=== PATIENT | male | born 1995 | race Caucasian/White ===

== ENCOUNTER 2021-12-19 20:14 | Observation (INO) | payer OTHER ==
[2021-12-19] MEDS ORDERED: Sodium Chloride 0.9% 1000 ML 1,000 ML IV STA (20:29)
[2021-12-19] MEDS ORDERED: HUMULIN R 100 UNIT in Sodium Chloride 0.9% 100 ML IV PRN ×2 (20:39→22:10)
[2021-12-19] MEDS ORDERED: Sodium Chloride 0.9% 1000 ML 1,000 ML ONE (20:51)
[2021-12-19] MEDS ORDERED: HUMULIN R ONE ×2 (20:57→21:06)
[2021-12-19] MEDS ORDERED: Sodium Chloride 0.9% 100 ML ONE (20:58)
[2021-12-19 21:38] LABS: ALBUMIN 4.7 g/dL (3.5-5.0); ALKALINE PHOSPHATASE 189 U/L (38-126); ANION GAP 18.3 MEQ/L (5-15); BLOOD UREA NITROGEN 11 mg/dL (9-20); CHLORIDE 96 mmol/L (98-107); Calcium 9.6 mg/dL (8.4-10.2); Carbon Dioxide 23 mmol/L (22-30); Creatinine 1 0.89 mg/dL (0.66-1.25); EST GLOMERULAR FILTRATION RATE > 60.0 ML/MIN; Potassium 4.3 mmol/L (3.5-5.1); SGOT/AST 223 U/L (17-59); SGPT/ALT 340 U/L (0-50); SODIUM 133 mmol/L (137-145); Total Protein 8.3 g/dL (6.3-8.2)
[2021-12-19 21:51] LABS: Glucose 625 mg/dL (74-106)
[2021-12-19] MEDS: Sodium Chloride 0.9% 1000 ML 1,000 ML IV SCH (21:56)
[2021-12-19 22:33] LABS: INFLUENZA A NEGATIVE (NEGATIVE); INFLUENZA B NEGATIVE (NEGATIVE); RESPIRATORY SYNCTIAL VIRUS NEGATIVE (Negative); SARS-CoV-2 Xpert Express NEGATIVE (NEGATIVE)
[2021-12-20 00:19] LABS: ANION GAP 14.6 MEQ/L (5-15); BLOOD UREA NITROGEN 11 mg/dL (9-20); CHLORIDE 98 mmol/L (98-107); Calcium 8.7 mg/dL (8.4-10.2); Carbon Dioxide 22 mmol/L (22-30); Creatinine 1 0.73 mg/dL (0.66-1.25); EST GLOMERULAR FILTRATION RATE > 60.0 ML/MIN; Glucose 444 mg/dL (74-106); SODIUM 131 mmol/L (137-145)
[2021-12-20] MEDS: Sodium Chloride 0.9% 1000 ML 1,000 ML IV SCH ×3 (00:58→16:30)
[2021-12-20 05:47] LABS: Basophil (Absolute #) 0.08 x10^3/uL (0-0.4); Eosinophil % 3.9 % (0.00-5.0); Eosinophil (Absolute #) 0.29 x10^3/uL (0-0.5); Lymphocyte (Absolute #) 2.46 x10^3/uL (1.0-4.6); Lymphocytes % 33.4 % (24.0-44.0); Mean Cell Volume 83.2 fL (78-100); Mean Corpuscular Hemoglobin 28.4 pg (26-32); Mean Corpuscular Hgb Concent. 34.1 g/dL (32-36); Mean Platelet Volume 11.5 fL (7.5-11.0); Monocyte (Absolute #) 0.61 x10^3/uL (0.0-1.3); Monocytes % 8.3 % (0.0-12.0); Platelet Count 230 x10^3/uL (150-450); Red Blood Count 4.93 x10^6/uL (4.1-5.6); Red Cell Distribution Width 12.6 % (11.5-14.0); White Blood Count 7.4 x10^3/uL (4.0-10.5)
[2021-12-20 06:52] LABS: ALBUMIN 3.9 g/dL (3.5-5.0); ALKALINE PHOSPHATASE 176 U/L (38-126); ANION GAP 11.5 MEQ/L (5-15); BLOOD UREA NITROGEN 11 mg/dL (9-20); CHLORIDE 100 mmol/L (98-107); Calcium 8.5 mg/dL (8.4-10.2); Carbon Dioxide 26 mmol/L (22-30); Creatinine 1 0.65 mg/dL (0.66-1.25); EST GLOMERULAR FILTRATION RATE > 60.0 ML/MIN; Glucose 310 mg/dL (74-106); MAGNESIUM 1.8 mg/dL (1.6-2.3); Potassium 3.5 mmol/L (3.5-5.1); SGOT/AST 155 U/L (17-59); SGPT/ALT 288 U/L (0-50); SODIUM 134 mmol/L (137-145); Total Protein 7.2 g/dL (6.3-8.2)
--- NOTE | 2021-12-20 08:54 | PCM.HP ---
History of Present Illness - Chief Complaint Chief Complaint: dka History of Present Illness: is a 26 year old male with no known medical history, he was found to have elevated LFTs trying to donate plasma so went to see Dr Talley, labs showed a blood sugar over 500 with increased LFTs, new onset diabetes and nonketotic hyperglycemia. started on insulin drip, he does note some polyuria and polydipsia in the last 2 weeks, no abd pain, no nausea/vomiting or abdominal pain. no fever or chills. - Review of Systems Constitutional: No Fever, No Chills Respiratory: No Cough, No Short Of Breath Cardiac: No Chest Pain, No Edema, No Syncope Abdominal/Gastrointestinal: No Abdominal Pain, No Nausea, No Vomiting, No Diarrhea Endocrine: Polyuria, Polydipsia Medications & Allergies Home Medications: Home Medication List No Reportable Medications [No Reported Medications] 12/19/21 [History Confirmed 12/19/21] Allergies/Adverse Reactions: Allergies Allergy/AdvReac Type Severity Reaction Status Date / Time No Known Drug Allergies Allergy Unverified 12/19/21 21:45 - Past Medical History Past Medical History: No - Past Surgical History Past Surgical History: No - Social History Smoking Status: Never smoker Exposure to second hand smoke: No Alcohol: None Drug Use: none - Physical Exam Vital Signs: Vital Signs - 24 hr Temp Pulse Resp BP Pulse Ox 12/20/21 07:14 98 F 78 18 136/95 95 12/20/21 06:31 98.1 F 77 20 143/90 95 12/20/21 05:36 98.1 F 68 20 135/82 97 12/20/21 04:35 74 18 128/63 96 12/20/21 03:48 72 22 113/63 98 12/20/21 03:47 68 12/20/21 02:44 83 16 144/84 94 L 12/20/21 01:37 120 H 24 139/76 98 12/20/21 00:58 78 18 95 12/20/21 00:00 93 H 24 128/76 95 12/19/21 23:40 92 H 12/19/21 22:57 98.6 F 92 H 24 156/82 96 12/19/21 22:00 98.6 F 99 H 16 135/82 99 12/19/21 21:45 98.6 F 104 H 21 129/81 95 12/19/21 21:30 98.6 F 102 H 22 163/96 96 12/19/21 21:17 98.6 F 113 H 21 140/88 96 12/19/21 21:15 98.6 F 112 H 21 154/91 96 12/19/21 21:00 98.6 F 113 H 21 154/91 96 General Appearance: no apparent distress, obese Neurologic Exam: alert, oriented x 3 Respiratory Exam: normal breath sounds, lungs clear, No respiratory distress Cardiovascular Exam: regular rate/rhythm, normal heart sounds, normal peripheral pulses Gastrointestinal/Abdomen Exam: soft, normal bowel sounds, No tenderness, No mass Extremity Exam: normal inspection, normal range of motion, pelvis stable Skin Exam: normal color, warm, dry, No rash Results - Labs Lab/Micro Results: Lab Results-Last 24 Hours 12/19/21 12/19/21 12/19/21 Range/Units 20:30 21:25 21:36 WBC (4.0-10.5) x10^3/uL RBC (4.1-5.6) x10^6/uL Hgb (12.5-18.0) g/dL Hct (42-50) % MCV (78-100) fL MCH (26-32) pg MCHC (32-36) g/dL RDW (11.5-14.0) % Plt Count (150-450) x10^3/uL MPV (7.5-11.0) fL Gran % (36.0-66.0) % Immature Gran % (Auto) (0.00-0.4) % Nucleat RBC Rel Count (0.00-0.1) % Eos # (Auto) (0-0.5) x10^3/uL Immature Gran # (Auto) (0.00-0.03) x10^3u/L Absolute Lymphs (auto) (1.0-4.6) x10^3/uL Absolute Monos (auto) (0.0-1.3) x10^3/uL Absolute Nucleated RBC (0.00-0.01) x10^3u/L Lymphocytes % (24.0-44.0) % Monocytes % (0.0-12.0) % Eosinophils % (0.00-5.0) % Basophils % (0.0-0.4) % Absolute Granulocytes (1.4-6.9) x10^3/uL Basophils # (0-0.4) x10^3/uL Sodium 133 L (137-145) mmol/L Potassium 4.3 (3.5-5.1) mmol/L Chloride 96 L (98-107) mmol/L Carbon Dioxide 23 (22-30) mmol/L Anion Gap 18.3 H (5-15) MEQ/L BUN 11 (9-20) mg/dL Creatinine 0.89 (0.66-1.25) mg/dL Estimated GFR > 60.0 ML/MIN Glucose 625 H* (74-106) mg/dL POC Glucometer 547 H* (50 to 500) mg/dL Calcium 9.6 (8.4-10.2) mg/dL Magnesium (1.6-2.3) mg/dL Total Bilirubin 1.10 (0.2-1.3) mg/dL AST 223 H (17-59) U/L ALT 340 H (0-50) U/L Alkaline Phosphatase 189 H (38-126) U/L Serum Total Protein 8.3 H (6.3-8.2) g/dL Albumin 4.7 (3.5-5.0) g/dL Influenza Type A Ag NEGATIVE (NEGATIVE) Influenza Type B Ag NEGATIVE (NEGATIVE) RSV (PCR) NEGATIVE (Negative) SARS-CoV-2 (PCR) NEGATIVE (NEGATIVE) 12/19/21 12/19/21 12/19/21 Range/Units 22:05 22:54 23:51 WBC (4.0-10.5) x10^3/uL RBC (4.1-5.6) x10^6/uL Hgb (12.5-18.0) g/dL Hct (42-50) % MCV (78-100) fL MCH (26-32) pg MCHC (32-36) g/dL RDW (11.5-14.0) % Plt Count (150-450) x10^3/uL MPV (7.5-11.0) fL Gran % (36.0-66.0) % Immature Gran % (Auto) (0.00-0.4) % Nucleat RBC Rel Count (0.00-0.1) % Eos # (Auto) (0-0.5) x10^3/uL Immature Gran # (Auto) (0.00-0.03) x10^3u/L Absolute Lymphs (auto) (1.0-4.6) x10^3/uL Absolute Monos (auto) (0.0-1.3) x10^3/uL Absolute Nucleated RBC (0.00-0.01) x10^3u/L Lymphocytes % (24.0-44.0) % Monocytes % (0.0-12.0) % Eosinophils % (0.00-5.0) % Basophils % (0.0-0.4) % Absolute Granulocytes (1.4-6.9) x10^3/uL Basophils # (0-0.4) x10^3/uL Sodium (137-145) mmol/L Potassium (3.5-5.1) mmol/L Chloride (98-107) mmol/L Carbon Dioxide (22-30) mmol/L Anion Gap (5-15) MEQ/L BUN (9-20) mg/dL Creatinine (0.66-1.25) mg/dL Estimated GFR ML/MIN Glucose (74-106) mg/dL POC Glucometer 497 H 433 H 417 H (50 to 500) mg/dL Calcium (8.4-10.2) mg/dL Magnesium (1.6-2.3) mg/dL Total Bilirubin (0.2-1.3) mg/dL AST (17-59) U/L ALT (0-50) U/L Alkaline Phosphatase (38-126) U/L Serum Total Protein (6.3-8.2) g/dL Albumin (3.5-5.0) g/dL Influenza Type A Ag (NEGATIVE) Influenza Type B Ag (NEGATIVE) RSV (PCR) (Negative) SARS-CoV-2 (PCR) (NEGATIVE) 12/20/21 12/20/21 12/20/21 Range/Units 00:01 00:47 01:53 WBC (4.0-10.5) x10^3/uL RBC (4.1-5.6) x10^6/uL Hgb (12.5-18.0) g/dL Hct (42-50) % MCV (78-100) fL MCH (26-32) pg MCHC (32-36) g/dL RDW (11.5-14.0) % Plt Count (150-450) x10^3/uL MPV (7.5-11.0) fL Gran % (36.0-66.0) % Immature Gran % (Auto) (0.00-0.4) % Nucleat RBC Rel Count (0.00-0.1) % Eos # (Auto) (0-0.5) x10^3/uL Immature Gran # (Auto) (0.00-0.03) x10^3u/L Absolute Lymphs (auto) (1.0-4.6) x10^3/uL Absolute Monos (auto) (0.0-1.3) x10^3/uL Absolute Nucleated RBC (0.00-0.01) x10^3u/L Lymphocytes % (24.0-44.0) % Monocytes % (0.0-12.0) % Eosinophils % (0.00-5.0) % Basophils % (0.0-0.4) % Absolute Granulocytes (1.4-6.9) x10^3/uL Basophils # (0-0.4) x10^3/uL Sodium 131 L (137-145) mmol/L Potassium 4.0 (3.5-5.1) mmol/L Chloride 98 (98-107) mmol/L Carbon Dioxide 22 (22-30) mmol/L Anion Gap 14.6 (5-15) MEQ/L BUN 11 (9-20) mg/dL Creatinine 0.73 (0.66-1.25) mg/dL Estimated GFR > 60.0 ML/MIN Glucose 444 H (74-106) mg/dL POC Glucometer 360 H 349 H (50 to 500) mg/dL Calcium 8.7 (8.4-10.2) mg/dL Magnesium (1.6-2.3) mg/dL Total Bilirubin (0.2-1.3) mg/dL AST (17-59) U/L ALT (0-50) U/L Alkaline Phosphatase (38-126) U/L Serum Total Protein (6.3-8.2) g/dL Albumin (3.5-5.0) g/dL Influenza Type A Ag (NEGATIVE) Influenza Type B Ag (NEGATIVE) RSV (PCR) (Negative) SARS-CoV-2 (PCR) (NEGATIVE) 12/20/21 12/20/21 12/20/21 Range/Units 02:47 03:52 04:20 WBC 7.4 (4.0-10.5) x10^3/uL RBC 4.93 (4.1-5.6) x10^6/uL Hgb 14.0 (12.5-18.0) g/dL Hct 41.0 L (42-50) % MCV 83.2 (78-100) fL MCH 28.4 (26-32) pg MCHC 34.1 (32-36) g/dL RDW 12.6 (11.5-14.0) % Plt Count 230 (150-450) x10^3/uL MPV 11.5 H (7.5-11.0) fL Gran % 53.0 (36.0-66.0) % Immature Gran % (Auto) 0.3 (0.00-0.4) % Nucleat RBC Rel Count 0.0 (0.00-0.1) % Eos # (Auto) 0.29 (0-0.5) x10^3/uL Immature Gran # (Auto) 0.02 (0.00-0.03) x10^3u/L Absolute Lymphs (auto) 2.46 (1.0-4.6) x10^3/uL Absolute Monos (auto) 0.61 (0.0-1.3) x10^3/uL Absolute Nucleated RBC 0.00 (0.00-0.01) x10^3u/L Lymphocytes % 33.4 (24.0-44.0) % Monocytes % 8.3 (0.0-12.0) % Eosinophils % 3.9 (0.00-5.0) % Basophils % 1.1 (0.0-0.4) % Absolute Granulocytes 3.90 (1.4-6.9) x10^3/uL Basophils # 0.08 (0-0.4) x10^3/uL Sodium (137-145) mmol/L Potassium (3.5-5.1) mmol/L Chloride (98-107) mmol/L Carbon Dioxide (22-30) mmol/L Anion Gap (5-15) MEQ/L BUN (9-20) mg/dL Creatinine (0.66-1.25) mg/dL Estimated GFR ML/MIN Glucose (74-106) mg/dL POC Glucometer 322 H 317 H (50 to 500) mg/dL Calcium (8.4-10.2) mg/dL Magnesium (1.6-2.3) mg/dL Total Bilirubin (0.2-1.3) mg/dL AST (17-59) U/L ALT (0-50) U/L Alkaline Phosphatase (38-126) U/L Serum Total Protein (6.3-8.2) g/dL Albumin (3.5-5.0) g/dL Influenza Type A Ag (NEGATIVE) Influenza Type B Ag (NEGATIVE) RSV (PCR) (Negative) SARS-CoV-2 (PCR) (NEGATIVE) 12/20/21 12/20/21 12/20/21 Range/Units 04:20 04:51 05:48 WBC (4.0-10.5) x10^3/uL RBC (4.1-5.6) x10^6/uL Hgb (12.5-18.0) g/dL Hct (42-50) % MCV (78-100) fL MCH (26-32) pg MCHC (32-36) g/dL RDW (11.5-14.0) % Plt Count (150-450) x10^3/uL MPV (7.5-11.0) fL Gran % (36.0-66.0) % Immature Gran % (Auto) (0.00-0.4) % Nucleat RBC Rel Count (0.00-0.1) % Eos # (Auto) (0-0.5) x10^3/uL Immature Gran # (Auto) (0.00-0.03) x10^3u/L Absolute Lymphs (auto) (1.0-4.6) x10^3/uL Absolute Monos (auto) (0.0-1.3) x10^3/uL Absolute Nucleated RBC (0.00-0.01) x10^3u/L Lymphocytes % (24.0-44.0) % Monocytes % (0.0-12.0) % Eosinophils % (0.00-5.0) % Basophils % (0.0-0.4) % Absolute Granulocytes (1.4-6.9) x10^3/uL Basophils # (0-0.4) x10^3/uL Sodium 134 L (137-145) mmol/L Potassium 3.5 (3.5-5.1) mmol/L Chloride 100 (98-107) mmol/L Carbon Dioxide 26 (22-30) mmol/L Anion Gap 11.5 (5-15) MEQ/L BUN 11 (9-20) mg/dL Creatinine 0.65 L (0.66-1.25) mg/dL Estimated GFR > 60.0 ML/MIN Glucose 310 H (74-106) mg/dL POC Glucometer 308 H 281 H (50 to 500) mg/dL Calcium 8.5 (8.4-10.2) mg/dL Magnesium 1.8 (1.6-2.3) mg/dL Total Bilirubin 0.50 (0.2-1.3) mg/dL AST 155 H (17-59) U/L ALT 288 H (0-50) U/L Alkaline Phosphatase 176 H (38-126) U/L Serum Total Protein 7.2 (6.3-8.2) g/dL Albumin 3.9 (3.5-5.0) g/dL Influenza Type A Ag (NEGATIVE) Influenza Type B Ag (NEGATIVE) RSV (PCR) (Negative) SARS-CoV-2 (PCR) (NEGATIVE) 12/20/21 12/20/21 Range/Units 06:37 07:48 WBC (4.0-10.5) x10^3/uL RBC (4.1-5.6) x10^6/uL Hgb (12.5-18.0) g/dL Hct (42-50) % MCV (78-100) fL MCH (26-32) pg MCHC (32-36) g/dL RDW (11.5-14.0) % Plt Count (150-450) x10^3/uL MPV (7.5-11.0) fL Gran % (36.0-66.0) % Immature Gran % (Auto) (0.00-0.4) % Nucleat RBC Rel Count (0.00-0.1) % Eos # (Auto) (0-0.5) x10^3/uL Immature Gran # (Auto) (0.00-0.03) x10^3u/L Absolute Lymphs (auto) (1.0-4.6) x10^3/uL Absolute Monos (auto) (0.0-1.3) x10^3/uL Absolute Nucleated RBC (0.00-0.01) x10^3u/L Lymphocytes % (24.0-44.0) % Monocytes % (0.0-12.0) % Eosinophils % (0.00-5.0) % Basophils % (0.0-0.4) % Absolute Granulocytes (1.4-6.9) x10^3/uL Basophils # (0-0.4) x10^3/uL Sodium (137-145) mmol/L Potassium (3.5-5.1) mmol/L Chloride (98-107) mmol/L Carbon Dioxide (22-30) mmol/L Anion Gap (5-15) MEQ/L BUN (9-20) mg/dL Creatinine (0.66-1.25) mg/dL Estimated GFR ML/MIN Glucose (74-106) mg/dL POC Glucometer 267 H 284 H (50 to 500) mg/dL Calcium (8.4-10.2) mg/dL Magnesium (1.6-2.3) mg/dL Total Bilirubin (0.2-1.3) mg/dL AST (17-59) U/L ALT (0-50) U/L Alkaline Phosphatase (38-126) U/L Serum Total Protein (6.3-8.2) g/dL Albumin (3.5-5.0) g/dL Influenza Type A Ag (NEGATIVE) Influenza Type B Ag (NEGATIVE) RSV (PCR) (Negative) SARS-CoV-2 (PCR) (NEGATIVE) Accuchecks Date 12/20/21 Date 12/20/21 Date 12/20/21 Date 12/20/21 Date 12/20/21 Date 12/20/21 Date 12/20/21 Date 12/20/21 Date 12/19/21 Time 06:41 Time 05:53 Time 04:54 Time 04:00 Time 02:53 Time 01:56 Time 00:49 Time 00:05 Time 23:00 - Radiology Impressions Radiology Exams & Impressions: Radiology Procedures Category Date Time Status GALLBLADDER [US] Routine Exams 12/20/21 06:00 Ordered Assessment/Plan (1) Nonketotic hyperglycinemia, type II Current Visit: Yes Status: Acute Assessment & Plan: improved with insulin drip. will change to sub-q insulin and start on po metformin at this time. discussed lifestyle changes Code(s): E72.9 - DISORDER OF AMINO-ACID METABOLISM, UNSPECIFIED (2) Diabetes mellitus, new onset Current Visit: No Status: Acute Code(s): E11.9 - TYPE 2 DIABETES MELLITUS WITHOUT COMPLICATIONS (3) Elevated liver enzymes Current Visit: No Status: Acute Assessment & Plan: suspect fatty liver disease, awaiting gb ultrasound Code(s): R74.8 - ABNORMAL LEVELS OF OTHER SERUM ENZYMES
[2021-12-20] MEDS: Lantus Insulin SQ SCH (09:10)
--- NOTE | 2021-12-20 09:57 | XRAY ---
Indication: Elevated liver enzymes. Diabetes. Two-dimensional gallbladder sonogram performed. Comparison: None Pancreas not well seen. Gallbladder normally distended without gallstones, wall thickening, or pericholecystic fluid or common bile duct measures 7.4 mm. No intrahepatic biliary distention. Diffuse fatty hepatomegaly measuring 24.1 cm. No ascites. Right kidney measures 14.4 cm in length and sonographically unremarkable. Impression: Nonvisualization pancreas. Fatty hepatomegaly. Remaining gallbladder sonogram is negative.
[2021-12-20] MEDS: HUMALOG SQ PRN ×3 (11:56→21:00)
[2021-12-20] MEDS: Glucophage 500 MG PO SCH (16:24)
[2021-12-20] MEDS ORDERED: TYLENOL 325 MG PO PRN (22:14)
[2021-12-21] MEDS: HUMALOG SQ PRN ×3 (00:04→08:33)
[2021-12-21] MEDS: Sodium Chloride 0.9% 1000 ML 1,000 ML IV SCH ×2 (02:49→07:28)
[2021-12-21 04:25] VITALS: O2SAT 96
[2021-12-21 05:23] LABS: Absolute Neutrophil Ct (ANC) 3.46 x10^3/uL (1.4-6.9); Basophil (Absolute #) 0.06 x10^3/uL (0-0.4); Eosinophil % 4.6 % (0.00-5.0); Eosinophil (Absolute #) 0.29 x10^3/uL (0-0.5); Hematocrit 43.6 % (42-50); Hemoglobin 14.6 g/dL (12.5-18.0); Lymphocyte (Absolute #) 2.01 x10^3/uL (1.0-4.6); Lymphocytes % 31.9 % (24.0-44.0); Mean Corpuscular Hemoglobin 27.4 pg (26-32); Mean Corpuscular Hgb Concent. 33.5 g/dL (32-36); Mean Platelet Volume 10.7 fL (7.5-11.0); Monocyte (Absolute #) 0.45 x10^3/uL (0.0-1.3); Monocytes % 7.1 % (0.0-12.0); Neutrophil % 54.9 % (36.0-66.0); Platelet Count 227 x10^3/uL (150-450); Red Blood Count 5.32 x10^6/uL (4.1-5.6); Red Cell Distribution Width 12.5 % (11.5-14.0); White Blood Count 6.3 x10^3/uL (4.0-10.5)
[2021-12-21 05:48] LABS: ALBUMIN 4.1 g/dL (3.5-5.0); ALKALINE PHOSPHATASE 139 U/L (38-126); ANION GAP 10.8 MEQ/L (5-15); BLOOD UREA NITROGEN 8 mg/dL (9-20); CHLORIDE 98 mmol/L (98-107); Calcium 8.9 mg/dL (8.4-10.2); Carbon Dioxide 28 mmol/L (22-30); EST GLOMERULAR FILTRATION RATE > 60.0 ML/MIN; Glucose 290 mg/dL (74-106); Potassium 4.1 mmol/L (3.5-5.1); SGOT/AST 266 U/L (17-59); SGPT/ALT 383 U/L (0-50); SODIUM 133 mmol/L (137-145); Total Protein 7.5 g/dL (6.3-8.2)
[2021-12-21] MEDS: Lantus Insulin SQ SCH (08:26)
[2021-12-21] MEDS: Glucophage 500 MG PO SCH (08:26)
--- NOTE | 2021-12-21 08:53 | PCM.NOTE ---
Date and Time: 12/21/21 0851 Subjective Assessment: doing ok - Review of Systems Constitutional: No Fever, No Chills Eyes: No Symptoms Ears, Nose, & Throat: No Symptoms Respiratory: No Cough, No Short Of Breath Cardiac: No Chest Pain, No Edema, No Syncope Abdominal/Gastrointestinal: No Abdominal Pain, No Nausea, No Vomiting, No Diarrhea Genitourinary Symptoms: No Dysuria Musculoskeletal: No Back Pain, No Neck Pain Skin: No Rash Neurological: No Dizziness, No Focal Weakness, No Sensory Changes Psychological: No Symptoms Endocrine: No Symptoms Hematologic/Lymphatic: No Symptoms Immunological/Allergic: No Symptoms Objective Exam General Appearance: no apparent distress, alert Neurologic Exam: alert, oriented x 3, cooperative, normal mood/affect, nml cerebellar function, sensation nml, No motor deficits Skin Exam: normal color, warm, dry Eye Exam: PERRL, EOMI, eyes nml inspection Ears, Nose, Throat Exam: normal ENT inspection, pharynx normal, moist mucous membranes Neck Exam: normal inspection, non-tender, supple, full range of motion Respiratory Exam: normal breath sounds, lungs clear, No respiratory distress Cardiovascular Exam: regular rate/rhythm, normal heart sounds Gastrointestinal/Abdomen Exam: soft, No tenderness, No mass Extremity Exam: normal inspection, normal range of motion Back Exam: normal inspection, normal range of motion, No CVA tenderness, No vertebral tenderness Male Genitalia Exam: deferred Rectal Exam: deferred OBJECTIVE DATA Vital Signs: Vital Signs - 24 hr Temp Pulse Resp BP Pulse Ox 12/21/21 08:00 97.9 F 90 18 165/93 96 12/21/21 04:00 97.7 F 78 18 133/72 96 12/21/21 00:00 97.1 F 74 20 142/85 98 12/20/21 20:19 97.7 F 77 18 146/92 98 12/20/21 16:00 97.7 F 60 18 151/86 97 12/20/21 12:00 97.8 F 74 22 142/77 97 Pain Assessment - Last Documented Pain Intensity 4 Pain Scale Used [facility] Intake and Output: Intake & Output 12/18/21 12/19/21 12/20/21 12/21/21 11:59 11:59 11:59 11:59 Intake Total 0709 5587 Output Total 1600 Balance 0021 9 Weight 163.6 kg Lab Results: Lab Results-Last 24 Hours 12/20/21 12/20/21 12/21/21 Range/Units 04:20 23:59 04:19 WBC (4.0-10.5) x10^3/uL RBC (4.1-5.6) x10^6/uL Hgb (12.5-18.0) g/dL Hct (42-50) % MCV (78-100) fL MCH (26-32) pg MCHC (32-36) g/dL RDW (11.5-14.0) % Plt Count (150-450) x10^3/uL MPV (7.5-11.0) fL Gran % (36.0-66.0) % Immature Gran % (Auto) (0.00-0.4) % Nucleat RBC Rel Count (0.00-0.1) % Eos # (Auto) (0-0.5) x10^3/uL Immature Gran # (Auto) (0.00-0.03) x10^3u/L Absolute Lymphs (auto) (1.0-4.6) x10^3/uL Absolute Monos (auto) (0.0-1.3) x10^3/uL Absolute Nucleated RBC (0.00-0.01) x10^3u/L Lymphocytes % (24.0-44.0) % Monocytes % (0.0-12.0) % Eosinophils % (0.00-5.0) % Basophils % (0.0-0.4) % Absolute Granulocytes (1.4-6.9) x10^3/uL Basophils # (0-0.4) x10^3/uL Sodium (137-145) mmol/L Potassium (3.5-5.1) mmol/L Chloride (98-107) mmol/L Carbon Dioxide (22-30) mmol/L Anion Gap (5-15) MEQ/L BUN (9-20) mg/dL Creatinine (0.66-1.25) mg/dL Estimated GFR ML/MIN Glucose (74-106) mg/dL POC Glucometer 293 H 262 H (74 to 106) mg/dL Hemoglobin A1c 9.84 H (4.5-6.0) % Calcium (8.4-10.2) mg/dL Total Bilirubin (0.2-1.3) mg/dL AST (17-59) U/L ALT (0-50) U/L Alkaline Phosphatase (38-126) U/L Serum Total Protein (6.3-8.2) g/dL Albumin (3.5-5.0) g/dL 12/21/21 12/21/21 12/21/21 Range/Units 05:19 05:19 08:29 WBC 6.3 (4.0-10.5) x10^3/uL RBC 5.32 (4.1-5.6) x10^6/uL Hgb 14.6 (12.5-18.0) g/dL Hct 43.6 (42-50) % MCV 82.0 (78-100) fL MCH 27.4 (26-32) pg MCHC 33.5 (32-36) g/dL RDW 12.5 (11.5-14.0) % Plt Count 227 (150-450) x10^3/uL MPV 10.7 (7.5-11.0) fL Gran % 54.9 (36.0-66.0) % Immature Gran % (Auto) 0.5 H (0.00-0.4) % Nucleat RBC Rel Count 0.0 (0.00-0.1) % Eos # (Auto) 0.29 (0-0.5) x10^3/uL Immature Gran # (Auto) 0.03 (0.00-0.03) x10^3u/L Absolute Lymphs (auto) 2.01 (1.0-4.6) x10^3/uL Absolute Monos (auto) 0.45 (0.0-1.3) x10^3/uL Absolute Nucleated RBC 0.00 (0.00-0.01) x10^3u/L Lymphocytes % 31.9 (24.0-44.0) % Monocytes % 7.1 (0.0-12.0) % Eosinophils % 4.6 (0.00-5.0) % Basophils % 1.0 (0.0-0.4) % Absolute Granulocytes 3.46 (1.4-6.9) x10^3/uL Basophils # 0.06 (0-0.4) x10^3/uL Sodium 133 L (137-145) mmol/L Potassium 4.1 (3.5-5.1) mmol/L Chloride 98 (98-107) mmol/L Carbon Dioxide 28 (22-30) mmol/L Anion Gap 10.8 (5-15) MEQ/L BUN 8 L (9-20) mg/dL Creatinine 0.60 L (0.66-1.25) mg/dL Estimated GFR > 60.0 ML/MIN Glucose 290 H (74-106) mg/dL POC Glucometer 303 H (74 to 106) mg/dL Hemoglobin A1c (4.5-6.0) % Calcium 8.9 (8.4-10.2) mg/dL Total Bilirubin 0.90 (0.2-1.3) mg/dL AST 266 H (17-59) U/L ALT 383 H (0-50) U/L Alkaline Phosphatase 139 H (38-126) U/L Serum Total Protein 7.5 (6.3-8.2) g/dL Albumin 4.1 (3.5-5.0) g/dL Radiology Exams: Radiology Procedures Category Date Time Status GALLBLADDER [US] Routine Exams 12/20/21 06:00 Completed US/GALLBLADDER Indication: Elevated liver enzymes. Diabetes. Two-dimensional gallbladder sonogram performed. Comparison: None Pancreas not well seen. Gallbladder normally distended without gallstones, wall thickening, or pericholecystic fluid or common bile duct measures 7.4 mm. No intrahepatic biliary distention. Diffuse fatty hepatomegaly measuring 24.1 cm. No ascites. Right kidney measures 14.4 cm in length and sonographically unremarkable. Impression: Nonvisualization pancreas. Fatty hepatomegaly. Remaining gallbladder sonogram is negative. Multi-Disciplinary Progress Notes: Multi-Disciplinary Progress Notes 12/20/21 14:10 Nutrition Note by Delmi Freeman Educated pt on 2000CC diet. Pt very interested, asked several questions. Gave pt written materials for reinforcement. ABBEY Bettencourt Initialized on 12/20/21 14:10 - END OF NOTE 12/20/21 09:00 (created 12/20/21 11:50) Case Management Note by Lea Govea GLUCOMETER ORDER CALLED INTO [facility]- NURSE TO INSTRUCT PATIENT TO HAVE FAMILY PICK IT UP AND BRING IT IN SO THEY CAN EDUCATE PATIENT ON ITS USE WHILE HE IS HERE. Initialized on 12/20/21 11:50 - END OF NOTE Assessment/Plan (1) Diabetes mellitus, new onset Current Visit: Yes Status: Acute Assessment & Plan: Chief Complaint Diagnosis DKA Allergies Allergy/AdvReac Type Severity Reaction Status Date / Time No Known Drug Allergies Allergy Unverified 12/19/21 21:45 Vital Signs (Last 24 hours) Temp Pulse Resp BP Pulse Ox 12/21/21 08:00 97.9 F 90 18 165/93 96 12/21/21 04:00 97.7 F 78 18 133/72 96 12/21/21 00:00 97.1 F 74 20 142/85 98 12/20/21 20:19 97.7 F 77 18 146/92 98 12/20/21 16:00 97.7 F 60 18 151/86 97 12/20/21 12:00 97.8 F 74 22 142/77 97 Home Medications Medication Instructions Recorded Confirmed Last Taken Type No Reportable Medications [No 12/19/21 12/19/21 Unknown History Reported Medications] Current Medications Generic Name Dose Route Start Last Admin Trade Name Freq PRN Reason Stop Dose Admin Acetaminophen 650 mg 12/20/21 22:14 12/20/21 22:17 Acetaminophen 325 Mg Tablet PO 01/19/22 22:13 650 mg Q4H PRN PRN Administration PAIN AND/OR FEVER Sodium Chloride 1,000 mls @ 100 mls/hr 12/19/21 22:00 12/21/21 07:28 Sodium Chloride 0.9% 1000 Ml IV 01/18/22 21:59 Not Given .Q10H FRANKLYN Insulin Glargine 30 unit 12/20/21 10:00 12/21/21 08:26 Insulin Glargine 1 Unit SQ 01/19/22 09:59 30 unit QAM FRANKLYN Administration Insulin Human Lispro 0 unit 12/20/21 08:55 12/21/21 08:33 Insulin Lispro 1 Unit SQ 01/19/22 08:54 9 unit UD PRN Administration HYPERGLYCEMIA Metformin HCl 500 mg 12/20/21 17:00 12/21/21 08:26 Metformin Hcl 500 Mg Tablet PO 01/19/22 16:59 500 mg BIDWM FRANKLYN Administration Discontinued Medications Generic Name Dose Route Start Last Admin Trade Name Freq PRN Reason Stop Dose Admin Sodium Chloride 1,000 mls @ 999 mls/hr 12/19/21 20:29 12/19/21 21:56 Sodium Chloride 0.9% 1000 Ml IV 12/19/21 21:29 Infused .Q1H1M STA Infusion Insulin Human Regular 100 unit 100 mls @ 0 mls/hr 12/19/21 20:39 / Sodium Chloride IV 01/18/22 20:38 .Q0M PRN DKA/HYPERGLYCEMIA Protocol 0.1 UNIT/KG/HR Sodium Chloride Confirm 12/19/21 20:58 Sodium Chloride 0.9% Administered 12/19/21 20:59 Dose 100 mls @ ud .ROUTE .STK-MED ONE Insulin Human Regular 100 unit 100 mls @ 16.36 mls/hr 12/19/21 22:10 12/20/21 07:51 / Sodium Chloride IV 01/18/22 22:09 0.05 unit/kg/hr .Q6H7M PRN 8 mls/hr DKA/HYPERGLYCEMIA Titration Protocol 0.1 UNIT/KG/HR Sodium Chloride Confirm 12/19/21 20:51 Sodium Chloride 0.9% 1000 Ml Administered 12/19/21 20:52 Dose 1,000 mls @ ud .ROUTE .STK-MED ONE Insulin Human Regular Confirm 12/19/21 20:57 Insulin Regular, Human 1 Unit Administered 12/19/21 20:58 Dose 1 unit .ROUTE .STK-MED ONE Insulin Human Regular Confirm 12/19/21 21:06 Insulin Regular, Human 1 Unit Administered 12/19/21 21:07 Dose 1 unit .ROUTE .STK-MED ONE Intake & Output (Last 24 hours) 12/18/21 12/19/21 12/20/21 12/21/21 11:59 11:59 11:59 11:59 Intake Total 6175 2068 Output Total 1600 Balance 4575 2068 Weight 163.6 kg Laboratory Results (Last 24 hours) 12/21/21 12/21/21 12/21/21 08:29 05:19 05:19 WBC 6.3 RBC 5.32 Hgb 14.6 Hct 43.6 MCV 82.0 MCH 27.4 MCHC 33.5 RDW 12.5 Plt Count 227 MPV 10.7 Gran % 54.9 Immature Gran % (Auto) 0.5 H Nucleat RBC Rel Count 0.0 Eos # (Auto) 0.29 Immature Gran # (Auto) 0.03 Absolute Lymphs (auto) 2.01 Absolute Monos (auto) 0.45 Absolute Nucleated RBC 0.00 Lymphocytes % 31.9 Monocytes % 7.1 Eosinophils % 4.6 Basophils % 1.0 Absolute Granulocytes 3.46 Basophils # 0.06 Sodium 133 L Potassium 4.1 Chloride 98 Carbon Dioxide 28 Anion Gap 10.8 BUN 8 L Creatinine 0.60 L Estimated GFR > 60.0 Glucose 290 H POC Glucometer 303 H Hemoglobin A1c Calcium 8.9 Total Bilirubin 0.90 AST 266 H ALT 383 H Alkaline Phosphatase 139 H Serum Total Protein 7.5 Albumin 4.1 12/21/21 12/20/21 12/20/21 04:19 23:59 04:20 WBC RBC Hgb Hct MCV MCH MCHC RDW Plt Count MPV Gran % Immature Gran % (Auto) Nucleat RBC Rel Count Eos # (Auto) Immature Gran # (Auto) Absolute Lymphs (auto) Absolute Monos (auto) Absolute Nucleated RBC Lymphocytes % Monocytes % Eosinophils % Basophils % Absolute Granulocytes Basophils # Sodium Potassium Chloride Carbon Dioxide Anion Gap BUN Creatinine Estimated GFR Glucose POC Glucometer 262 H 293 H Hemoglobin A1c 9.84 H Calcium Total Bilirubin AST ALT Alkaline Phosphatase Serum Total Protein Albumin Orders (Last 24 hours) Category Date Time Status Diabetic Teaching ROUTINE Care 12/20/21 08:55 Active Nursing [Miscellaneous Nursing Order] ROUTINE Care 12/20/21 08:57 Active Nursing [Miscellaneous Nursing Order] ROUTINE Care 12/20/21 09:00 Active POCT Glucose Check Q4H Care 12/20/21 08:56 Active Consistent Carbohydrate Diet 2000 Calorie Diet 12/20/21 Lunch Active Nutritional Consult ROUTINE Diet 12/20/21 09:18 Active CBC W DIFF AM.LAB Lab 12/21/21 05:19 Completed CBC W DIFF AM.LAB Lab 12/22/21 04:00 Ordered CMP AM.LAB Lab 12/21/21 05:19 Completed CMP AM.LAB Lab 12/22/21 04:00 Ordered Hepatitis Profile [Acute Hepatitis Profile] Routine Lab 12/20/21 09:25 Received POCT GLUCOSE Stat Lab 12/20/21 23:59 Completed POCT GLUCOSE Stat Lab 12/21/21 04:19 Completed POCT GLUCOSE Stat Lab 12/21/21 08:29 Completed Acetaminophen 325 mg [Tylenol 325 mg] Med 12/20/21 22:14 Active 650 mg PO Q4H PRN PRN Insulin Glargine [Lantus Insulin] Med 12/20/21 10:00 Active 30 unit SQ QAM Insulin Lispro [Humalog] Med 12/20/21 08:55 Active See Dose Instructions SQ UD PRN Metformin HCl 500 mg [Glucophage 500 MG] Med 12/20/21 17:00 Active 500 mg PO BIDWM Patient Care Notes (Last 24 hours) 12/20/21 21:42 Nursing Note by Galina Cortes Patient reported 1 small episode of vomiting. Initialized on 12/20/21 21:42 - END OF NOTE 12/20/21 14:10 Nutrition Note by Delmi Freeman Educated pt on 2000CC diet. Pt very interested, asked several questions. Gave pt written materials for reinforcement. Sg MSRDCD Initialized on 12/20/21 14:10 - END OF NOTE 12/20/21 11:53 Nursing Note by eBlén Freedman pt used his own meter to check his blood sugar. Initialized on 12/20/21 11:53 - END OF NOTE 12/20/21 09:21 Nursing Note by Belén Freedman pt instructed on how to give insulin shots and performed his own lantus injecti on to RUQ. insulin drip off. Initialized on 12/20/21 09:21 - END OF NOTE 12/20/21 09:00 (created 12/20/21 11:50) Case Management Note by Lea Govea GLUCOMETER ORDER CALLED INTO [facility]- NURSE TO INSTRUCT PATIENT TO HAVE FAMILY PICK IT UP AND BRING IT IN SO THEY CAN EDUCATE PATIENT ON ITS USE WHILE HE IS HERE. Initialized on 12/20/21 11:50 - END OF NOTE Code(s): E11.9 - TYPE 2 DIABETES MELLITUS WITHOUT COMPLICATIONS (2) Elevated liver enzymes Current Visit: Yes Status: Acute Code(s): R74.8 - ABNORMAL LEVELS OF OTHER SERUM ENZYMES
[2021-12-21 09:11] LABS: HBsAg Screen Negative (Negative); HCV Ab 0.3 s/co ratio (0.0-0.9); Hep A Ab, IgM Negative (Negative); Hep B Core Ab, IgM Negative (Negative)
[2021-12-21 11:27] VITALS: BP 167/88; PULSE 95
--- NOTE | 2021-12-21 17:20 | PCM.DS ---
Discharge Summary Date of Admission: 12/19/21 20:14 Admitting Physician: TEREZA SHELTON Consults: Consults on Case 12/20/21 09:18 Nutritional Consult ROUTINE Primary Care Provider: TEREZA SHELTON Allergies Allergies No Known Drug Allergies Allergy (Unverified 12/19/21 21:45) Hospital Summary - Hospital Course Hospital Course: Chief Complaint Diagnosis DKA Allergies Allergy/AdvReac Type Severity Reaction Status Date / Time No Known Drug Allergies Allergy Unverified 12/19/21 21:45 Vital Signs (Last 24 hours) Temp Pulse Resp BP Pulse Ox 12/21/21 11:26 98.0 F 95 H 16 167/88 96 12/21/21 08:00 97.9 F 90 18 165/93 96 12/21/21 04:00 97.7 F 78 18 133/72 96 12/21/21 00:00 97.1 F 74 20 142/85 98 12/20/21 20:19 97.7 F 77 18 146/92 98 Home Medications Medication Instructions Recorded Confirmed Last Taken Type Insulin Glargine-Yfgn 50 unit SQ DAILY 30 Days #1 12/21/21 Unknown Rx Metformin HCl 500 mg 500 mg PO BIDWM 30 Days #60 tablet 12/21/21 Unknown Rx [Glucophage 500 MG] Current Medications Discontinued Medications Generic Name Dose Route Start Last Admin Trade Name Freq PRN Reason Stop Dose Admin Acetaminophen 650 mg 12/20/21 22:14 12/20/21 22:17 Acetaminophen 325 Mg Tablet PO 01/19/22 22:13 650 mg Q4H PRN PRN Administration PAIN AND/OR FEVER Sodium Chloride 1,000 mls @ 999 mls/hr 12/19/21 20:29 12/19/21 21:56 Sodium Chloride 0.9% 1000 Ml IV 12/19/21 21:29 Infused .Q1H1M STA Infusion Sodium Chloride 1,000 mls @ 100 mls/hr 12/19/21 22:00 12/21/21 07:28 Sodium Chloride 0.9% 1000 Ml IV 01/18/22 21:59 Not Given .Q10H FRANK[place] Insulin Human Regular 100 unit 100 mls @ 0 mls/hr 12/19/21 20:39 / Sodium Chloride IV 01/18/22 20:38 .Q0M PRN DKA/HYPERGLYCEMIA Protocol 0.1 UNIT/KG/HR Sodium Chloride Confirm 12/19/21 20:58 Sodium Chloride 0.9% Administered 12/19/21 20:59 Dose 100 mls @ ud .ROUTE .STK-MED ONE Insulin Human Regular 100 unit 100 mls @ 16.36 mls/hr 12/19/21 22:10 12/20/21 07:51 / Sodium Chloride IV 01/18/22 22:09 0.05 unit/kg/hr .Q6H7M PRN 8 mls/hr DKA/HYPERGLYCEMIA Titration Protocol 0.1 UNIT/KG/HR Sodium Chloride Confirm 12/19/21 20:51 Sodium Chloride 0.9% 1000 Ml Administered 12/19/21 20:52 Dose 1,000 mls @ ud .ROUTE .STK-MED ONE Insulin Glargine 30 unit 12/20/21 10:00 12/21/21 08:26 Insulin Glargine 1 Unit SQ 01/19/22 09:59 30 unit QAM FR[place] Administration Insulin Human Lispro 0 unit 12/20/21 08:55 12/21/21 08:33 Insulin Lispro 1 Unit SQ 01/19/22 08:54 9 unit UD PRN Administration HYPERGLYCEMIA Insulin Human Regular Confirm 12/19/21 20:57 Insulin Regular, Human 1 Unit Administered 12/19/21 20:58 Dose 1 unit .ROUTE .STK-MED ONE Insulin Human Regular Confirm 12/19/21 21:06 Insulin Regular, Human 1 Unit Administered 12/19/21 21:07 Dose 1 unit .ROUTE .STK-MED ONE Metformin HCl 500 mg 12/20/21 17:00 12/21/21 08:26 Metformin Hcl 500 Mg Tablet PO 01/19/22 16:59 500 mg BIDWM FR[place] Administration Intake & Output (Last 24 hours) 12/19/21 12/20/21 12/21/21 12/22/21 11:59 11:59 11:59 11:59 Intake Total 6176 2068 Output Total 1600 Balance 4572 2068 Weight 163.6 kg Laboratory Results (Last 24 hours) 12/21/21 12/21/21 12/21/21 11:16 08:29 05:19 WBC RBC Hgb Hct MCV MCH MCHC RDW Plt Count MPV Gran % Immature Gran % (Auto) Nucleat RBC Rel Count Eos # (Auto) Immature Gran # (Auto) Absolute Lymphs (auto) Absolute Monos (auto) Absolute Nucleated RBC Lymphocytes % Monocytes % Eosinophils % Basophils % Absolute Granulocytes Basophils # Sodium 133 L Potassium 4.1 Chloride 98 Carbon Dioxide 28 Anion Gap 10.8 BUN 8 L Creatinine 0.60 L Estimated GFR > 60.0 Glucose 290 H POC Glucometer 138 H 303 H Calcium 8.9 Total Bilirubin 0.90 AST 266 H ALT 383 H Alkaline Phosphatase 139 H Serum Total Protein 7.5 Albumin 4.1 Hepatitis A IgM Ab Hep Bs Antigen Hep B Core IgM Ab Hep C Ab Signal/Cutoff Hepatitis C Interp 12/21/21 12/21/21 12/20/21 05:19 04:19 23:59 WBC 6.3 RBC 5.32 Hgb 14.6 Hct 43.6 MCV 82.0 MCH 27.4 MCHC 33.5 RDW 12.5 Plt Count 227 MPV 10.7 Gran % 54.9 Immature Gran % (Auto) 0.5 H Nucleat RBC Rel Count 0.0 Eos # (Auto) 0.29 Immature Gran # (Auto) 0.03 Absolute Lymphs (auto) 2.01 Absolute Monos (auto) 0.45 Absolute Nucleated RBC 0.00 Lymphocytes % 31.9 Monocytes % 7.1 Eosinophils % 4.6 Basophils % 1.0 Absolute Granulocytes 3.46 Basophils # 0.06 Sodium Potassium Chloride Carbon Dioxide Anion Gap BUN Creatinine Estimated GFR Glucose POC Glucometer 262 H 293 H Calcium Total Bilirubin AST ALT Alkaline Phosphatase Serum Total Protein Albumin Hepatitis A IgM Ab Hep Bs Antigen Hep B Core IgM Ab Hep C Ab Signal/Cutoff Hepatitis C Interp 12/20/21 09:25 WBC RBC Hgb Hct MCV MCH MCHC RDW Plt Count MPV Gran % Immature Gran % (Auto) Nucleat RBC Rel Count Eos # (Auto) Immature Gran # (Auto) Absolute Lymphs (auto) Absolute Monos (auto) Absolute Nucleated RBC Lymphocytes % Monocytes % Eosinophils % Basophils % Absolute Granulocytes Basophils # Sodium Potassium Chloride Carbon Dioxide Anion Gap BUN Creatinine Estimated GFR Glucose POC Glucometer Calcium Total Bilirubin AST ALT Alkaline Phosphatase Serum Total Protein Albumin Hepatitis A IgM Ab Negative Hep Bs Antigen Negative Hep B Core IgM Ab Negative Hep C Ab Signal/Cutoff 0.3 Hepatitis C Interp Comment Orders (Last 24 hours) Category Date Time Status Discharge Routine Discharge 12/21/21 Ordered ABDOMEN AND PELVIS W&WO CONTRA [CT] Routine Exams 12/21/21 09:30 Taken CBC W DIFF AM.LAB Lab 12/21/21 05:19 Completed CMP AM.LAB Lab 12/21/21 05:19 Completed HIV Panel [id number] Routine Lab 12/21/21 05:34 Received POCT GLUCOSE Stat Lab 12/20/21 23:59 Completed POCT GLUCOSE Stat Lab 12/21/21 04:19 Completed POCT GLUCOSE Stat Lab 12/21/21 08:29 Completed POCT GLUCOSE Stat Lab 12/21/21 11:16 Completed Acetaminophen 325 mg [Tylenol 325 mg] Med 12/20/21 22:14 Discontinued 650 mg PO Q4H PRN PRN Metformin HCl 500 mg [Glucophage 500 MG] Med 12/20/21 17:00 Discontinued 500 mg PO BIDWM Patient Care Notes (Last 24 hours) 12/21/21 10:07 Nursing Note by Krissy Gamez This nurse rounded with Dr. Prasad. Dr. Prasad would like at [place] Abd with and without contrast. Call results to and discharge home this afternoon if results are negative. Follow up with Dr. Talley next week in office. Initialized on 12/21/21 10:07 - END OF NOTE 12/20/21 21:42 Nursing Note by Galina Cortes Patient reported 1 small episode of vomiting. Initialized on 12/20/21 21:42 - END OF NOTE - Vitals & Intake/Output Vital Signs: Vital Signs Temperature 98.0 F 12/21/21 11:26 Pulse Rate 95 H 12/21/21 11:26 Respiratory Rate 16 12/21/21 11:26 Blood Pressure 167/88 12/21/21 11:26 O2 Sat by Pulse Oximetry 96 12/21/21 11:26 Intake & Output: Intake & Output 12/19/21 12/20/21 12/21/21 12/22/21 11:59 11:59 11:59 11:59 Intake Total 6175 2068 Output Total 1600 Balance 4575 8 Weight 163.6 kg - Lab Result Diagrams: 12/21/21 05:19 12/21/21 05:19 Lab Results-Last 24 Hrs: Lab Results-Last 24 Hours 12/20/21 12/20/21 12/21/21 Range/Units 09:25 23:59 04:19 WBC (4.0-10.5) x10^3/uL RBC (4.1-5.6) x10^6/uL Hgb (12.5-18.0) g/dL Hct (42-50) % MCV (78-100) fL MCH (26-32) pg MCHC (32-36) g/dL RDW (11.5-14.0) % Plt Count (150-450) x10^3/uL MPV (7.5-11.0) fL Gran % (36.0-66.0) % Immature Gran % (Auto) (0.00-0.4) % Nucleat RBC Rel Count (0.00-0.1) % Eos # (Auto) (0-0.5) x10^3/uL Immature Gran # (Auto) (0.00-0.03) x10^3u/L Absolute Lymphs (auto) (1.0-4.6) x10^3/uL Absolute Monos (auto) (0.0-1.3) x10^3/uL Absolute Nucleated RBC (0.00-0.01) x10^3u/L Lymphocytes % (24.0-44.0) % Monocytes % (0.0-12.0) % Eosinophils % (0.00-5.0) % Basophils % (0.0-0.4) % Absolute Granulocytes (1.4-6.9) x10^3/uL Basophils # (0-0.4) x10^3/uL Sodium (137-145) mmol/L Potassium (3.5-5.1) mmol/L Chloride (98-107) mmol/L Carbon Dioxide (22-30) mmol/L Anion Gap (5-15) MEQ/L BUN (9-20) mg/dL Creatinine (0.66-1.25) mg/dL Estimated GFR ML/MIN Glucose (74-106) mg/dL POC Glucometer 293 H 262 H (74 to 106) mg/dL Calcium (8.4-10.2) mg/dL Total Bilirubin (0.2-1.3) mg/dL AST (17-59) U/L ALT (0-50) U/L Alkaline Phosphatase (38-126) U/L Serum Total Protein (6.3-8.2) g/dL Albumin (3.5-5.0) g/dL Hepatitis A IgM Ab Negative (Negative) Hep Bs Antigen Negative (Negative) Hep B Core IgM Ab Negative (Negative) Hep C Ab Signal/Cutoff 0.3 (0.0-0.9) s/co ratio Hepatitis C Interp Comment (.) 12/21/21 12/21/21 12/21/21 Range/Units 05:19 05:19 08:29 WBC 6.3 (4.0-10.5) x10^3/uL RBC 5.32 (4.1-5.6) x10^6/uL Hgb 14.6 (12.5-18.0) g/dL Hct 43.6 (42-50) % MCV 82.0 (78-100) fL MCH 27.4 (26-32) pg MCHC 33.5 (32-36) g/dL RDW 12.5 (11.5-14.0) % Plt Count 227 (150-450) x10^3/uL MPV 10.7 (7.5-11.0) fL Gran % 54.9 (36.0-66.0) % Immature Gran % (Auto) 0.5 H (0.00-0.4) % Nucleat RBC Rel Count 0.0 (0.00-0.1) % Eos # (Auto) 0.29 (0-0.5) x10^3/uL Immature Gran # (Auto) 0.03 (0.00-0.03) x10^3u/L Absolute Lymphs (auto) 2.01 (1.0-4.6) x10^3/uL Absolute Monos (auto) 0.45 (0.0-1.3) x10^3/uL Absolute Nucleated RBC 0.00 (0.00-0.01) x10^3u/L Lymphocytes % 31.9 (24.0-44.0) % Monocytes % 7.1 (0.0-12.0) % Eosinophils % 4.6 (0.00-5.0) % Basophils % 1.0 (0.0-0.4) % Absolute Granulocytes 3.46 (1.4-6.9) x10^3/uL Basophils # 0.06 (0-0.4) x10^3/uL Sodium 133 L (137-145) mmol/L Potassium 4.1 (3.5-5.1) mmol/L Chloride 98 (98-107) mmol/L Carbon Dioxide 28 (22-30) mmol/L Anion Gap 10.8 (5-15) MEQ/L BUN 8 L (9-20) mg/dL Creatinine 0.60 L (0.66-1.25) mg/dL Estimated GFR > 60.0 ML/MIN Glucose 290 H (74-106) mg/dL POC Glucometer 303 H (74 to 106) mg/dL Calcium 8.9 (8.4-10.2) mg/dL Total Bilirubin 0.90 (0.2-1.3) mg/dL AST 266 H (17-59) U/L ALT 383 H (0-50) U/L Alkaline Phosphatase 139 H (38-126) U/L Serum Total Protein 7.5 (6.3-8.2) g/dL Albumin 4.1 (3.5-5.0) g/dL Hepatitis A IgM Ab (Negative) Hep Bs Antigen (Negative) Hep B Core IgM Ab (Negative) Hep C Ab Signal/Cutoff (0.0-0.9) s/co ratio Hepatitis C Interp (.) 12/21/21 Range/Units 11:16 WBC (4.0-10.5) x10^3/uL RBC (4.1-5.6) x10^6/uL Hgb (12.5-18.0) g/dL Hct (42-50) % MCV (78-100) fL MCH (26-32) pg MCHC (32-36) g/dL RDW (11.5-14.0) % Plt Count (150-450) x10^3/uL MPV (7.5-11.0) fL Gran % (36.0-66.0) % Immature Gran % (Auto) (0.00-0.4) % Nucleat RBC Rel Count (0.00-0.1) % Eos # (Auto) (0-0.5) x10^3/uL Immature Gran # (Auto) (0.00-0.03) x10^3u/L Absolute Lymphs (auto) (1.0-4.6) x10^3/uL Absolute Monos (auto) (0.0-1.3) x10^3/uL Absolute Nucleated RBC (0.00-0.01) x10^3u/L Lymphocytes % (24.0-44.0) % Monocytes % (0.0-12.0) % Eosinophils % (0.00-5.0) % Basophils % (0.0-0.4) % Absolute Granulocytes (1.4-6.9) x10^3/uL Basophils # (0-0.4) x10^3/uL Sodium (137-145) mmol/L Potassium (3.5-5.1) mmol/L Chloride (98-107) mmol/L Carbon Dioxide (22-30) mmol/L Anion Gap (5-15) MEQ/L BUN (9-20) mg/dL Creatinine (0.66-1.25) mg/dL Estimated GFR ML/MIN Glucose (74-106) mg/dL POC Glucometer 138 H (74 to 106) mg/dL Calcium (8.4-10.2) mg/dL Total Bilirubin (0.2-1.3) mg/dL AST (17-59) U/L ALT (0-50) U/L Alkaline Phosphatase (38-126) U/L Serum Total Protein (6.3-8.2) g/dL Albumin (3.5-5.0) g/dL Hepatitis A IgM Ab (Negative) Hep Bs Antigen (Negative) Hep B Core IgM Ab (Negative) Hep C Ab Signal/Cutoff (0.0-0.9) s/co ratio Hepatitis C Interp (.) Micro Results-Entire Visit: Accuchecks Date 12/21/21 Date 12/21/21 Date 12/21/21 Date 12/21/21 Date 12/20/21 Time 11:27 Time 08:34 Time 04:20 Time 00:02 Time 20:58 - Radiology Exams Ordered Rad Exams-Entire Visit: Radiology Procedures Category Date Time Status ABDOMEN AND PELVIS W&WO CONTRA [CT] Routine Exams 12/21/21 09:30 Taken GALLBLADDER [US] Routine Exams 12/20/21 06:00 Completed Discharge Exam General Appearance: no apparent distress, alert Neurologic Exam: alert, oriented x 3, cooperative, normal mood/affect, nml cerebellar function, sensation nml, No motor deficits Eye Exam: PERRL, EOMI, eyes nml inspection Ears, Nose, Throat Exam: normal ENT inspection, pharynx normal, moist mucous membranes Neck Exam: normal inspection, non-tender, supple, full range of motion Respiratory Exam: normal breath sounds, lungs clear, No respiratory distress Cardiovascular Exam: regular rate/rhythm, normal heart sounds Gastrointestinal/Abdomen Exam: soft, No tenderness, No mass Male Genitalia Exam: deferred Rectal Exam: deferred Back Exam: normal inspection, normal range of motion, No CVA tenderness, No vertebral tenderness Extremity Exam: normal inspection, normal range of motion Skin Exam: normal color, warm, dry Final Diagnosis/Problem List - Final Discharge Diagnosis/Problem (1) Diabetes mellitus, new onset Status: Acute Assessment & Plan: Chief Complaint Diagnosis DKA Allergies Allergy/AdvReac Type Severity Reaction Status Date / Time No Known Drug Allergies Allergy Unverified 12/19/21 21:45 Vital Signs (Last 24 hours) Temp Pulse Resp BP Pulse Ox 12/21/21 11:26 98.0 F 95 H 16 167/88 96 12/21/21 08:00 97.9 F 90 18 165/93 96 12/21/21 04:00 97.7 F 78 18 133/72 96 12/21/21 00:00 97.1 F 74 20 142/85 98 12/20/21 20:19 97.7 F 77 18 146/92 98 Home Medications Medication Instructions Recorded Confirmed Last Taken Type Insulin Glargine-Yfgn 50 unit SQ DAILY 30 Days #1 12/21/21 Unknown Rx Metformin HCl 500 mg 500 mg PO BIDWM 30 Days #60 tablet 12/21/21 Unknown Rx [Glucophage 500 MG] Current Medications Discontinued Medications Generic Name Dose Route Start Last Admin Trade Name Freq PRN Reason Stop Dose Admin Acetaminophen 650 mg 12/20/21 22:14 12/20/21 22:17 Acetaminophen 325 Mg Tablet PO 01/19/22 22:13 650 mg Q4H PRN PRN Administration PAIN AND/OR FEVER Sodium Chloride 1,000 mls @ 999 mls/hr 12/19/21 20:29 12/19/21 21:56 Sodium Chloride 0.9% 1000 Ml IV 12/19/21 21:29 Infused .Q1H1M STA Infusion Sodium Chloride 1,000 mls @ 100 mls/hr 12/19/21 22:00 12/21/21 07:28 Sodium Chloride 0.9% 1000 Ml IV 01/18/22 21:59 Not Given .Q10H [place] Insulin Human Regular 100 unit 100 mls @ 0 mls/hr 12/19/21 20:39 / Sodium Chloride IV 01/18/22 20:38 .Q0M PRN DKA/HYPERGLYCEMIA Protocol 0.1 UNIT/KG/HR Sodium Chloride Confirm 12/19/21 20:58 Sodium Chloride 0.9% Administered 12/19/21 20:59 Dose 100 mls @ ud .ROUTE .STK-MED ONE Insulin Human Regular 100 unit 100 mls @ 16.36 mls/hr 12/19/21 22:10 12/20/21 07:51 / Sodium Chloride IV 01/18/22 22:09 0.05 unit/kg/hr .Q6H7M PRN 8 mls/hr DKA/HYPERGLYCEMIA Titration Protocol 0.1 UNIT/KG/HR Sodium Chloride Confirm 12/19/21 20:51 Sodium Chloride 0.9% 1000 Ml Administered 12/19/21 20:52 Dose 1,000 mls @ ud .ROUTE .STK-MED ONE Insulin Glargine 30 unit 12/20/21 10:00 12/21/21 08:26 Insulin Glargine 1 Unit SQ 01/19/22 09:59 30 unit QAM [place] Administration Insulin Human Lispro 0 unit 12/20/21 08:55 12/21/21 08:33 Insulin Lispro 1 Unit SQ 01/19/22 08:54 9 unit UD PRN Administration HYPERGLYCEMIA Insulin Human Regular Confirm 12/19/21 20:57 Insulin Regular, Human 1 Unit Administered 12/19/21 20:58 Dose 1 unit .ROUTE .STK-MED ONE Insulin Human Regular Confirm 12/19/21 21:06 Insulin Regular, Human 1 Unit Administered 12/19/21 21:07 Dose 1 unit .ROUTE .STK-MED ONE Metformin HCl 500 mg 12/20/21 17:00 12/21/21 08:26 Metformin Hcl 500 Mg Tablet PO 01/19/22 16:59 500 mg BIDWM [place] Administration Intake & Output (Last 24 hours) 12/19/21 12/20/21 12/21/21 12/22/21 11:59 11:59 11:59 11:59 Intake Total 6181 2068 Output Total 1600 Balance 4578 2068 Weight 163.6 kg Laboratory Results (Last 24 hours) 12/21/21 12/21/21 12/21/21 11:16 08:29 05:19 WBC RBC Hgb Hct MCV MCH MCHC RDW Plt Count MPV Gran % Immature Gran % (Auto) Nucleat RBC Rel Count Eos # (Auto) Immature Gran # (Auto) Absolute Lymphs (auto) Absolute Monos (auto) Absolute Nucleated RBC Lymphocytes % Monocytes % Eosinophils % Basophils % Absolute Granulocytes Basophils # Sodium 133 L Potassium 4.1 Chloride 98 Carbon Dioxide 28 Anion Gap 10.8 BUN 8 L Creatinine 0.60 L Estimated GFR > 60.0 Glucose 290 H POC Glucometer 138 H 303 H Calcium 8.9 Total Bilirubin 0.90 AST 266 H ALT 383 H Alkaline Phosphatase 139 H Serum Total Protein 7.5 Albumin 4.1 Hepatitis A IgM Ab Hep Bs Antigen Hep B Core IgM Ab Hep C Ab Signal/Cutoff Hepatitis C Interp 12/21/21 12/21/21 12/20/21 05:19 04:19 23:59 WBC 6.3 RBC 5.32 Hgb 14.6 Hct 43.6 MCV 82.0 MCH 27.4 MCHC 33.5 RDW 12.5 Plt Count 227 MPV 10.7 Gran % 54.9 Immature Gran % (Auto) 0.5 H Nucleat RBC Rel Count 0.0 Eos # (Auto) 0.29 Immature Gran # (Auto) 0.03 Absolute Lymphs (auto) 2.01 Absolute Monos (auto) 0.45 Absolute Nucleated RBC 0.00 Lymphocytes % 31.9 Monocytes % 7.1 Eosinophils % 4.6 Basophils % 1.0 Absolute Granulocytes 3.46 Basophils # 0.06 Sodium Potassium Chloride Carbon Dioxide Anion Gap BUN Creatinine Estimated GFR Glucose POC Glucometer 262 H 293 H Calcium Total Bilirubin AST ALT Alkaline Phosphatase Serum Total Protein Albumin Hepatitis A IgM Ab Hep Bs Antigen Hep B Core IgM Ab Hep C Ab Signal/Cutoff Hepatitis C Interp 12/20/21 09:25 WBC RBC Hgb Hct MCV MCH MCHC RDW Plt Count MPV Gran % Immature Gran % (Auto) Nucleat RBC Rel Count Eos # (Auto) Immature Gran # (Auto) Absolute Lymphs (auto) Absolute Monos (auto) Absolute Nucleated RBC Lymphocytes % Monocytes % Eosinophils % Basophils % Absolute Granulocytes Basophils # Sodium Potassium Chloride Carbon Dioxide Anion Gap BUN Creatinine Estimated GFR Glucose POC Glucometer Calcium Total Bilirubin AST ALT Alkaline Phosphatase Serum Total Protein Albumin Hepatitis A IgM Ab Negative Hep Bs Antigen Negative Hep B Core IgM Ab Negative Hep C Ab Signal/Cutoff 0.3 Hepatitis C Interp Comment Orders (Last 24 hours) Category Date Time Status Discharge Routine Discharge 12/21/21 Ordered ABDOMEN AND PELVIS W&WO CONTRA [CT] Routine Exams 12/21/21 09:30 Taken CBC W DIFF AM.LAB Lab 12/21/21 05:19 Completed CMP AM.LAB Lab 12/21/21 05:19 Completed HIV Panel [id number] Routine Lab 12/21/21 05:34 Received POCT GLUCOSE Stat Lab 12/20/21 23:59 Completed POCT GLUCOSE Stat Lab 12/21/21 04:19 Completed POCT GLUCOSE Stat Lab 12/21/21 08:29 Completed POCT GLUCOSE Stat Lab 12/21/21 11:16 Completed Acetaminophen 325 mg [Tylenol 325 mg] Med 12/20/21 22:14 Discontinued 650 mg PO Q4H PRN PRN Metformin HCl 500 mg [Glucophage 500 MG] Med 12/20/21 17:00 Discontinued 500 mg PO BIDWM Patient Care Notes (Last 24 hours) 12/21/21 10:07 Nursing Note by Krissy Gamez This nurse rounded with Dr. Prasad. Dr. Prasad would like at CT Abd with and without contrast. Call results to and discharge home this afternoon if results are negative. Follow up with Dr. Talley next week in office. Initialized on 12/21/21 10:07 - END OF NOTE 12/20/21 21:42 Nursing Note by Galina Cortes Patient reported 1 small episode of vomiting. Initialized on 12/20/21 21:42 - END OF NOTE Code(s): E11.9 - TYPE 2 DIABETES MELLITUS WITHOUT COMPLICATIONS (2) Elevated liver enzymes Status: Acute Assessment & Plan: CT abdomen and pelvis negative. gallbladder US negative. Hepatitis profile pending. Followup as outpatient for elevated liver enzymes Code(s): R74.8 - ABNORMAL LEVELS OF OTHER SERUM ENZYMES - Discharge Discharge Date: 12/21/21 Disposition: Home, Self-Care Condition: Stable Prescriptions: New Insulin Glargine-Yfgn 50 unit SQ DAILY 30 Days #1 Metformin HCl 500 mg [Glucophage 500 MG] 500 mg PO BIDWM 30 Days #60 tablet Instructions: Insulin Injection, Low Blood Sugar, Adult (DC), Diabetes Type 1, Adult (DC), Blood Glucose Monitoring, Metformin, How to Use an Insulin Pen Additional Instructions: -PLEASE COME IN SOMETIME AFTER 12 NOON ON 12/28/21 TO [employer] YOUR HOME SLEEP STUDY -CHECK YOUR BLOOD SUGAR 3 TIMES A DAY AND RECORD RESULTS FOR DR DO FOLLOW UP. Follow up with: TEREZA SHELTON [Primary Care Provider] - 12/24/21 10:45 am
--- NOTE | 2021-12-21 19:41 | XRAY ---
Indication: Elevated liver enzymes. Multiple contiguous axial images obtained through the abdomen and pelvis prior to and following 80 cc Isovue 370 contrast as ordered. Comparison: None Lung bases are. Heart not enlarged. Noncontrasted images negative for pathologic visceral calcifications/calculi. Noncontrasted stomach and bowel loops appear nonobstructed with normal appendix. No free fluid/air. 27.3 cm fatty hepatomegaly and 16.5 cm splenomegaly. Postcontrast images damages normal visceral enhancement and renal excretion. Remaining liver, gallbladder, pancreas, spleen, adrenal glands, kidneys, ureters, bladder, and aorta are unremarkable. No pathologic retroperitoneal lymphadenopathy. Osseous structures intact. No ventral or inguinal hernias. Impression: 1. Negative pathologic visceral calcifications/calculi. 2. Fatty hepatomegaly and splenomegaly. 3. Remaining CT abdomen/pelvis with and without contrast exam is negative Comment: Preliminary interpretation made by [facility]. No critical discrepancy.
== END 2021-12-21 14:09 | disposition home or self-care (01) ==
LOC: INTOOBSV 20:14 → ICU 20:14
PROVIDERS: ADMIT Family Medicine; ATTEND Family Medicine
DX: E11.65 Type 2 diabetes mellitus with hyperglycemia (principal); E72.9 Disorder of amino-acid metabolism, unspecified; R74.8 Abnormal levels of other serum enzymes; Z20.828 Contact with and (suspected) exposure to other viral communicable diseases
CPT/HCPCS: 0241U; 36415; 74178; 76705; 80048; 80053; 80074; 82947; 83036; 83735; 85025; 87389; G0378; J1815; J1817; A9270-GY